=== PATIENT | female | born 1990 | race Caucasian/White ===

== ENCOUNTER 2016-08-12 11:33 | Emergency (ER) | payer OTHER ==
[2016-08-12 11:48] VITALS: TEMP 97.5; BMI 24.7
[2016-08-12] MEDS ORDERED: METOCLOPRAMIDE HCL 10 MG TABLET (FP) PO ONE ×2 (12:18→12:25)
[2016-08-12] MEDS ORDERED: traMADol HCL 50 MG TABLET PO ONE (12:18)
--- NOTE | 2016-08-12 12:18 | PDOC ---
History of Present Illness <Andrea Kidd - Last Filed: 08/12/16 14:11> - General History Source: Patient Exam Limitations: No Limitations - History of Present Illness Initial Comments: 08/12/16 12:10 The patient is a 26-year-old woman, accompanied by friend with a past medical history of asthma who presents to the emergency department for further evaluation of a headache status post head injury. No LOC. 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 She was standing while moving a ladder around that was able to reach plastic recyclable bins that were on the overhead, when two bins fell on top of her head. She denies experiencing visual changes, neck stiffness , changes in sensation/strengths to her extremities post incident. She immediately felt lightheaded. A nearby co-worker heard the loud thump and went to help her. She currently states that she has a bilateral frontal throbbing headache with associated lightheadedness and neck pain. No weakness, tingling or numbness sensations throughout her extremities. No nausea, vomiting. No chest pain, palpitations, dizziness, cough, shortness of breath. Allergies: No Known Drug Allergies Past Surgical History: None reported Social History: No tobacco, ETOH or recreational drug. <Iona Tavares - Last Filed: 08/12/16 14:29> - General Chief Complaint: Injury Stated Complaint: NEAR SYNCOPE, HEADACHE Time Seen by Provider: 08/12/16 11:50 Past History - Past Medical History Asthma: Yes - Psycho/Social/Smoking Cessation Hx Anxiety: No Suicidal Ideation: No Smoking Status: No Smoking History: Never smoked Have you smoked in the past 12 months: No Number of Cigarettes Smoked Daily: 0 Information on smoking cessation initiated: No Hx Alcohol Use: No Drug/Substance Use Hx: No Substance Use Type: None <Andrea Kidd - Last Filed: 08/12/16 14:11> <Iona Tavares - Last Filed: 08/12/16 14:29> - Past Medical History Allergies/Adverse Reactions: Allergies Allergy/AdvReac Type Severity Reaction Status Date / Time No Known Allergies Allergy Verified 08/12/16 11:39 Home Medications: Ambulatory Orders Metoclopramide HCl [Reglan] 10 mg PO BID PRN #14 tablet 08/12/16 Review of Systems - Review of Systems Constitutional: No: Chills, Fever HEENTM: No: Recent change in vision Respiratory: No: Shortness of Breath Cardiac (ROS): Yes: Lightheadedness. No: Chest Pain, Syncope ABD/GI: No: Nausea, Vomiting Musculoskeletal: Yes: Muscle Pain Neurological: Yes: Headache. No: Tingling, Weakness All Other Systems: Reviewed and Negative <MartiAndrea - Last Filed: 08/12/16 14:11> *Physical Exam - Vital Signs Last Vital Signs Temp Pulse Resp BP Pulse Ox 97.5 F L 85 18 112/67 100 08/12/16 11:39 08/12/16 11:39 08/12/16 11:39 08/12/16 11:39 08/12/16 11:39 <SatishAndrea sadler - Last Filed: 08/12/16 14:11> - Vital Signs Last Vital Signs Temp Pulse Resp BP Pulse Ox 97.5 F L 85 18 112/67 100 08/12/16 11:39 08/12/16 11:39 08/12/16 11:39 08/12/16 11:39 08/12/16 11:39 - Physical Exam Comments: 08/12/16 12:10 General: Patient is alert and in no acute distress. Speech is clear and appropriate. Head: Atraumatic and nontender. There is an approximately 1.5 cm superficial ecchymosis to the frontal scalp. No underlying hematoma. No scalp deformity No boggines. HEENT: Pupils are equal round and reactive to light, extraocular movements are intact. The tympanic membranes are clear, no hemotympanum. No facial deformity/ tenderness, no septal hematoma. The oropharynx is clear. Dentition is intact Neck: The trachea is midline, there is no stridor. Some upper midline discomfort to palpation without obvious stepoff. C-Collar maintained. Left greater than right trapezial discomfort without swelling or hematoma. Chest: Nontender, no ecchymosis or abrasions. Heart: S1-S2, regular rate and rhythm. No murmurs. Lungs: Clear to auscultation bilaterally. Symmetric chest rise. Abdomen: Soft/nontender/nondistended. Bowel sounds are normal. There is no abdominal or flank ecchymosis. Back/Pelvis: There is no midline spinal tenderness or step-off. Pelvis is stable and nontender. Extremities: There is no extremity deformity or joint swelling. No focal bony tenderness throughout. 2+ distal pulses throughout. Neuro: Alert and oriented x3. Cranial nerves II through XII are intact. 5 out of 5 motor strength x4 extremities. [id number] is intact. No pronator drift. Gait deferred Skin: No abrasions/hematomas/lacerations. Psych: Affect is appropriate. <Iona Tavares - Last Filed: 08/12/16 14:29> ED Treatment Course - RADIOLOGY Radiograph Interpretation: 08/12/16 14:28 EXAM: CT/HEAD CT WITHOUT CONTRAST IMPRESSION: Status post injury CT scan of the brain without intravenous contrast. The ventricles and basal cisterns appear unremarkable. No gross mass lesion, focal infarct or intracranial hemorrhage is identified. Visualized paranasal sinuses and mastoid air cells are well-aerated. The calvarium is intact. EXAM: CT/CERVICAL SPINE CT W/O CONTR IMPRESSION: CT scan of the cervical spine without intravenous contrast Coronal and sagittal reconstruction images were obtained. No gross fracture, subluxation or prevertebral soft tissue swelling is seen. No jumped facets are identified. The odontoid process appears intact. Visualized portion of the airway appears unremarkable. Bilateral lateral neck subcentimeter lymph nodes are present, right more numerous and slightly larger than left which are nonspecific lung windows at the thoracic inlet appear unremarkable. - Medications Given in the ED: ED Medications Discontinued Medications Generic Name Dose Route Start Last Admin Trade Name Freq PRN Reason Stop Dose Admin Metoclopramide HCl 10 mg 08/12/16 12:18 08/12/16 12:28 Reglan - PO 08/12/16 12:19 10 mg ONCE ONE Administration Tramadol HCl 50 mg 08/12/16 12:18 08/12/16 12:28 Ultram - PO 08/12/16 12:19 50 mg ONCE ONE Administration <Iona Tavares - Last Filed: 08/12/16 14:29> Medical Decision Making - Medical Decision Making 08/12/16 12:21 A portion of this note was documented by scribe services under my direction. I have reviewed the details of the note, within reason, and agree with the documentation with the following case summary and management plan written by me. Healthy 26-year-old female presents for evaluation after head injury while at work. 2 large plastic garbage bins fell from a 15 foot shelf and struck her on top of her head, no LOC but developed some lightheadedness and some frontal headache. No nausea or vomiting, no focal deficits, no acute vision changes or confusion. Vital signs normal. C-collar placed in triage. Frontal scalp abrasion/contusion without bony scalp deformity or hematoma Some midline upper spine tenderness, neurologically intact Healthy 26-year-old female with moderate mechanism head injury, neurologically intact. Likely concussion, rule out bleed or C-spine compression injury. CT head and CT C-spine Pain control Reassess 08/12/16 14:11 CT without TBI or C-spine fracture. Remains neurologically intact. C-collar clinically clear, discharged with concussion precautions, understands return criteria. <Andrea Kidd - Last Filed: 08/12/16 14:11> *DC/Admit/Observation/Transfer <Andrea Kidd - Last Filed: 08/12/16 14:11> - Attestations Scribe Attestion: 08/12/16 12:51 Documentation prepared by Iona Tavares, acting as medical claims assistant for Andrea Kidd MD. <Iona Tavares - Last Filed: 08/12/16 14:29> Diagnosis at time of Disposition: Closed head injury Qualifiers: Encounter type: initial encounter Qualified Code(s): S09.90XA - Unspecified injury of head, initial encounter Concussion Qualifiers: Encounter type: initial encounter Loss of consciousness presence/duration: without LOC Qualified Code(s): S06.0X0A - Concussion without loss of consciousness, initial encounter - Discharge Dispostion Disposition: HOME Condition at time of disposition: Stable - Prescriptions Prescriptions: Metoclopramide HCl [Reglan] 10 mg PO BID PRN #14 tablet PRN Reason: Nausea - Referrals Referrals: Farshad Barkley MD [Staff Physician] - - Patient Instructions Printed Discharge Instructions: DI for Closed Head Injury, DI for Concussion Additional Instructions: Stay hydrated. Tylenol 1000 mg every 8 hours and/or ibuprofen 600 mg every 8 hours as needed for pain. Reglan as needed for nausea. Your symptoms are most consistent with a concussion. It is recommended that you have physical rest, avoiding any activities that may increase the likelihood of you reinjuring your head. Cognitive rest is also recommended, avoid prolonged monitor exposure, reading, or loud noises. You should follow up with your primary doctor and/or a neurologist as soon as possible regarding today's emergency department visit. Consider calling Dr. Barkley for an appointment as needed. Return to the emergency department for any new or concerning symptoms, particularly worsening headache, vomiting or confusion, worsening sleepiness, focal weakness.
[2016-08-12] MEDS ORDERED: traMADol HCL 50 MG TABLET ONE (12:25)
[2016-08-12 15:43] VITALS: BP 118/70; PULSE 75
== END 2016-08-12 15:38 | disposition home or self-care (01) ==
LOC: JER 11:33
DX: S06.0X0A Concussion without loss of consciousness, initial encounter (principal); W20.8XXA Other cause of strike by thrown, projected or falling object, initial encounter; Y93.89 Activity, other specified; Y92.59 Other trade areas as the place of occurrence of the external cause; Y99.0 Civilian activity done for income or pay
CPT/HCPCS: 70450-TC; 72125-TC; 84703; 99283-25